=== PATIENT | male | born 2000 | race Caucasian/White ===

== ENCOUNTER 2023-04-21 14:16 | Emergency (ER) | payer BC ==
[~2023-04-21] VITALS: Ht 175.3 cm; Wt 68.0 kg
[2023-04-21 15:01] VITALS: BP 140/92; PULSE 95; RESP 18; TEMP 97; O2SAT 98
[2023-04-21 15:46] VITALS: BP 140/92; PULSE 95; RESP 18; TEMP 97; O2SAT 98
== END 2023-04-21 15:47 | disposition home or self-care (01) ==
LOC: MED 14:16
DX: S61.412A Laceration without foreign body of left hand, initial encounter (principal); W26.8XXA Contact with other sharp object(s), not elsewhere classified, initial encounter; Y93.89 Activity, other specified; Y92.89 Other specified places as the place of occurrence of the external cause; Y99.8 Other external cause status
CPT/HCPCS: 12001; 99282